=== PATIENT | female | born 1995 | race American Indian/Alaskan Native ===

== ENCOUNTER 2019-01-17 20:22 | Observation (INO) | payer SELFPAY ==
--- NOTE | 2019-01-17 20:28 | Emergency Department Report ---
Blank Doc - Documentation Documentation: This is a 23-year-old female that presents with hands and arms locking up. Robert davies denies any chest pain or SOB. This initial assessment/diagnostic orders/clinical plan/treatment(s) is/are subject to change based on patient's health status, clinical progression and re-assessment by fellow clinical providers in the ED. Further treatment and workup at subsequent clinical providers discretion. Patient/guardians urged not to elope from the ED as their condition may be serious if not clinically assessed and managed. Initial orders include: 1- Patient sent to MAIN ED for further evaluation and treatment 2- labs 3- EKG 4- UA
[2019-01-17 21:06] LABS: Hematocrit 23.5 % (30.3-42.9); Hemoglobin 6.9 gm/dl (10.1-14.3); Mean Corpuscular HGB Conc 29 % (30-34); Platelet Count 564 K/mm3 (140-440); Red Blood Count 3.95 M/mm3 (3.65-5.03)
[2019-01-17 21:08] LABS: Basophils % (Auto) 0.6 % (0.0-1.8); Lymphocytes # (Auto) 3.1 K/mm3 (1.2-5.4); Lymphocytes % (Auto) 47.6 % (13.4-35.0); Mean Corpuscular Volume 59 fl (79-97); Monocytes # (Auto) 0.4 K/mm3 (0.0-0.8); Monocytes % (Auto) 6.2 % (0.0-7.3); Red Cell Distribution Width 22.1 % (13.2-15.2)
[2019-01-17] MEDS ORDERED: NACL 0.9% 1000 ML 1,000 ML IV ONE ×2 (21:19→21:20)
--- NOTE | 2019-01-17 21:24 | Emergency Department Report ---
- General Chief complaint: Neuro Symptoms/Deficit Stated complaint: SHOCK DEHYDRATION Time Seen by Provider: 01/17/19 20:27 Source: patient, family Mode of arrival: Ambulatory Limitations: Physical Limitation - History of Present Illness Initial comments: 23-year-old female with no significant past medical history presents to the hospital after generalized weakness and feeling like her body was locking up while working. 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 She did not have anything to drink or eat all day. Patient states she felt weak all over, hot, and shortness of breath. She tried to sit down to recover and felt like her body was locking up. No reports of syncope. Her mother expresses concerns that patient is constantly eating ice. Patient denies any pain at this time. Patient is currently on her menstrual cycle and uses 4 tampons daily. - Related Data Allergies Allergy/AdvReac Type Severity Reaction Status Date / Time No Known Allergies Allergy Unverified 01/17/19 21:20 ED Review of Systems ROS: Stated complaint: SHOCK DEHYDRATION Other details as noted in HPI Comment: All other systems reviewed and negative ED Past Medical Hx - Past Medical History Previous Medical History?: No - Surgical History Past Surgical History?: No - Social History Smoking Status: Never Smoker Substance Use Type: Marijuana ED Physical Exam - General Limitations: Physical Limitation - Other Other exam information: General: No limitations, patient is alert in no acute distress Head exam: Atraumatic, normocephalic Eyes exam: Normal appearance, pupils equal reactive to light, extraocular movements intact ENT: Dry mucous membranes Neck exam: Normal inspection, full range of motion, no meningismus nontender Respiratory exam: Clear to auscultation bilateral, no wheezes, rales, crackles Cardiovascular: Normal rate and rhythm, normal heart sounds Abdomen: Soft, nondistended, and nontender, with normal bowel sounds, no rebound, or guarding Extremity: Full range of motion normal inspection no deformity Back: Normal Inspection, full range of motion, no tenderness Neurologic: Alert, oriented x3, cranial nerves intact, no motor or sensory deficit Psychiatric: normal affect, normal mood Skin: Warm, dry, intact ED Course Vital Signs 01/17/19 01/17/19 01/17/19 20:31 20:41 21:01 Temperature 97.4 F L Pulse Rate 95 H 86 74 Respiratory 22 14 Rate Blood Pressure 113/86 100/68 O2 Sat by Pulse 99 Oximetry 01/17/19 22:01 Temperature Pulse Rate 87 Respiratory 15 Rate Blood Pressure 112/64 O2 Sat by Pulse 100 Oximetry ED Medical Decision Making - Lab Data Result diagrams: 01/17/19 20:47 01/17/19 20:47 Lab Results 01/17/19 01/17/19 01/17/19 Range/Units 20:47 20:47 20:47 WBC 6.5 (4.5-11.0) K/mm3 RBC 3.95 (3.65-5.03) M/mm3 Hgb 6.9 L (10.1-14.3) gm/dl Hct 23.5 L (30.3-42.9) % MCV 59 L (79-97) fl MCH 17 L (28-32) pg MCHC 29 L (30-34) % RDW 22.1 H (13.2-15.2) % Plt Count 564 H (140-440) K/mm3 Lymph % (Auto) 47.6 H (13.4-35.0) % Hoke % (Auto) 6.2 (0.0-7.3) % Eos % (Auto) 0.0 (0.0-4.3) % Baso % (Auto) 0.6 (0.0-1.8) % Lymph # 3.1 (1.2-5.4) K/mm3 Hoke # 0.4 (0.0-0.8) K/mm3 Eos # 0.0 (0.0-0.4) K/mm3 Baso # 0.0 (0.0-0.1) K/mm3 Seg Neutrophils % 45.6 (40.0-70.0) % Seg Neutrophils # 3.0 (1.8-7.7) K/mm3 Sodium 136 L (137-145) mmol/L Potassium 3.0 L (3.6-5.0) mmol/L Chloride 97.8 L (98-107) mmol/L Carbon Dioxide 17 L (22-30) mmol/L Anion Gap 24 mmol/L BUN 11 (7-17) mg/dL Creatinine 0.6 L (0.7-1.2) mg/dL Estimated GFR > 60 ml/min BUN/Creatinine Ratio 18 % Glucose 96 (65-100) mg/dL Calcium 9.5 (8.4-10.2) mg/dL Magnesium (1.7-2.3) mg/dL Iron (37-170) ug/dL TIBC (250-450) mcg/dL % Saturation % Transferrin (192-382) mg/dl Total Bilirubin 0.70 (0.1-1.2) mg/dL AST 14 (5-40) units/L ALT 11 (7-56) units/L Alkaline Phosphatase 75 (35-129) units/L Total Protein 8.4 H (6.3-8.2) g/dL Albumin 4.5 (3.9-5) g/dL Albumin/Globulin Ratio 1.2 % Lipase 40 (13-60) units/L HCG, Qual Negative (Negative) Urine Bilirubin (Negative) Urine RBC (Auto) (0.0-6.0) /HPF U Epithel Cells (Auto) (0-13.0) /HPF Salicylates (2.8-20.0) mg/dL Acetaminophen (10.0-30.0) ug/mL Plasma/Serum Alcohol (0-0.07) % 01/17/19 01/17/19 01/17/19 Range/Units 20:47 20:47 20:47 WBC (4.5-11.0) K/mm3 RBC (3.65-5.03) M/mm3 Hgb (10.1-14.3) gm/dl Hct (30.3-42.9) % MCV (79-97) fl MCH (28-32) pg MCHC (30-34) % RDW (13.2-15.2) % Plt Count (140-440) K/mm3 Lymph % (Auto) (13.4-35.0) % Hoke % (Auto) (0.0-7.3) % Eos % (Auto) (0.0-4.3) % Baso % (Auto) (0.0-1.8) % Lymph # (1.2-5.4) K/mm3 Hoke # (0.0-0.8) K/mm3 Eos # (0.0-0.4) K/mm3 Baso # (0.0-0.1) K/mm3 Seg Neutrophils % (40.0-70.0) % Seg Neutrophils # (1.8-7.7) K/mm3 Sodium (137-145) mmol/L Potassium (3.6-5.0) mmol/L Chloride (98-107) mmol/L Carbon Dioxide (22-30) mmol/L Anion Gap mmol/L BUN (7-17) mg/dL Creatinine (0.7-1.2) mg/dL Estimated GFR ml/min BUN/Creatinine Ratio % Glucose (65-100) mg/dL Calcium (8.4-10.2) mg/dL Magnesium (1.7-2.3) mg/dL Iron (37-170) ug/dL TIBC (250-450) mcg/dL % Saturation % Transferrin (192-382) mg/dl Total Bilirubin (0.1-1.2) mg/dL AST (5-40) units/L ALT (7-56) units/L Alkaline Phosphatase (35-129) units/L Total Protein (6.3-8.2) g/dL Albumin (3.9-5) g/dL Albumin/Globulin Ratio % Lipase (13-60) units/L HCG, Qual (Negative) Urine Bilirubin (Negative) Urine RBC (Auto) (0.0-6.0) /HPF U Epithel Cells (Auto) (0-13.0) /HPF Salicylates < 0.3 L (2.8-20.0) mg/dL Acetaminophen < 5.0 L (10.0-30.0) ug/mL Plasma/Serum Alcohol < 0.01 (0-0.07) % 01/17/19 01/17/19 01/17/19 Range/Units 21:00 21:07 21:29 WBC (4.5-11.0) K/mm3 RBC (3.65-5.03) M/mm3 Hgb (10.1-14.3) gm/dl Hct (30.3-42.9) % MCV (79-97) fl MCH (28-32) pg MCHC (30-34) % RDW (13.2-15.2) % Plt Count (140-440) K/mm3 Lymph % (Auto) (13.4-35.0) % Hoke % (Auto) (0.0-7.3) % Eos % (Auto) (0.0-4.3) % Baso % (Auto) (0.0-1.8) % Lymph # (1.2-5.4) K/mm3 Hoke # (0.0-0.8) K/mm3 Eos # (0.0-0.4) K/mm3 Baso # (0.0-0.1) K/mm3 Seg Neutrophils % (40.0-70.0) % Seg Neutrophils # (1.8-7.7) K/mm3 Sodium (137-145) mmol/L Potassium (3.6-5.0) mmol/L Chloride (98-107) mmol/L Carbon Dioxide (22-30) mmol/L Anion Gap mmol/L BUN (7-17) mg/dL Creatinine (0.7-1.2) mg/dL Estimated GFR ml/min BUN/Creatinine Ratio % Glucose (65-100) mg/dL Calcium (8.4-10.2) mg/dL Magnesium 1.90 (1.7-2.3) mg/dL Iron 11 L (37-170) ug/dL TIBC 479 H (250-450) mcg/dL % Saturation 2.30 % Transferrin 409 H (192-382) mg/dl Total Bilirubin (0.1-1.2) mg/dL AST (5-40) units/L ALT (7-56) units/L Alkaline Phosphatase (35-129) units/L Total Protein (6.3-8.2) g/dL Albumin (3.9-5) g/dL Albumin/Globulin Ratio % Lipase (13-60) units/L HCG, Qual (Negative) Urine Bilirubin Neg (Negative) Urine RBC (Auto) 18.0 (0.0-6.0) /HPF U Epithel Cells (Auto) 5.0 (0-13.0) /HPF Salicylates (2.8-20.0) mg/dL Acetaminophen (10.0-30.0) ug/mL Plasma/Serum Alcohol (0-0.07) % ua reviewed - EKG Data -: EKG Interpreted by Mi EKG shows normal: sinus rhythm, axis (qrs 73), QRS complexes (qrsd 88), ST-T waves (no stemi/t inv) Rate: tachycardia (103) - EKG Data When compared to previous EKG there are: previous EKG unavailable - Medical Decision Making plan to admit for blood transfusion and IVF po KCL for mildy hypokalmia low bicarb with anion gap noted ? dehydration Hospitalist informed - Differential Diagnosis dehydration, anemia, electrolyte abnormalities Critical Care Time: No Critical care attestation.: If time is entered above; I have spent that time in minutes in the direct care of this critically ill patient, excluding procedure time. ED Disposition Clinical Impression: Iron deficiency anemia, Dehydration, Generalized weakness, Hypokalemia Disposition: OP ADMIT IP TO THIS HOSP Is pt being admited?: Yes Condition: Stable Time of Disposition: 22:14 (Dr Mendoza/hosp)
[2019-01-17 21:29] LABS: Alanine Aminotransferase 11 units/L (7-56); Albumin 4.5 g/dL (3.9-5); BUN/Creatinine Ratio 18; Blood Urea Nitrogen 11 mg/dL (7-17); Calcium 9.5 mg/dL (8.4-10.2); Hemolysis Index 2
[2019-01-17 21:36] LABS: % Iron Saturation 2.3 %
[2019-01-17] MEDS ORDERED: NACL 0.9% 500 ML 500 ML IV ONE (22:17)
[2019-01-17 22:18] LABS: Bilirubin,Urine NEG (Negative); Blood,Urine LG (Negative); Color,Urine Yellow (Yellow); Mucus,Urine FEW /HPF; Protein,Urine <15 mg/dL mg/dL (Negative); Urobilinogen,Urine < 2.0 mg/dL (<2.0)
[2019-01-17] MEDS ORDERED: K-DUR PO ONE (22:18)
[2019-01-17 22:25] LABS: Amphetamine Screen,Urine PRESUMPTIVE NEGATIVE; Benzodiazepines Screen,Urine PRESUMPTIVE NEGATIVE; Cannabinoid Screen,Urine PRESUMPTIVE NEGATIVE; Cocaine Screen,Urine PRESUMPTIVE NEGATIVE; Methadone Screen,Urine PRESUMPTIVE NEGATIVE; Opiate Screen,Urine PRESUMPTIVE NEGATIVE
[2019-01-17] MEDS ORDERED: TYLENOL PO PRN (23:00)
[2019-01-17] MEDS ORDERED: ZOFRAN IV PRN (23:00)
[2019-01-17] MEDS ORDERED: SODIUM CHLORIDE FLUSH SYRINGE 10 ML IV PRN (23:00)
[2019-01-17] MEDS ORDERED: AMBIEN PO PRN (23:00)
--- NOTE | 2019-01-17 23:15 | History and Physical Report ---
History of Present Illness Date of examination: 01/17/19 Chief complaint: Generalized weakness History of present illness: Patient is a 23-year-old -Malawian female with no known past medical history who presented to the ED on account of generalized weakness. 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 She also admitted to palpitation. She denies chest pain, fever, chills, headaches, nausea, vomiting, syncope or loss of consciousness. No abdominal pain, diarrhea, constipation, dysuria or frequency. Patient reports that her menstrual period is irregular, sometimes heavy and can last for about 2 weeks. Past History Past Medical History: No medical history Past Surgical History: No surgical history Social history: other (patient admits to occasional marijuana and alcohol use. She denies tobacco use) Family history: hypertension (grandmother), other (no known family history of diabetes, heart disease or bleeding disorder) Medications and Allergies Allergies Allergy/AdvReac Type Severity Reaction Status Date / Time No Known Allergies Allergy Unverified 01/17/19 21:20 Active Meds: Active Medications Acetaminophen (Tylenol) 650 mg PO Q4H PRN PRN Reason: Pain MILD(1-3)/Fever >100.5/GRAHAM Potassium Chloride/Sodium Chloride (Ns/Kcl 20meq) 20 meq in 1,000 mls @ 100 mls/hr IV DIRECT CRISTOBAL Potassium Chloride (Kcl 10meq/100ml) 10 meq in 100 mls @ 100 mls/hr IV Q1H CRISTOBAL Stop: 01/18/19 01:44 Ondansetron HCl (Zofran) 4 mg IV Q8H PRN PRN Reason: Nausea And Vomiting Sodium Chloride (Sodium Chloride Flush Syringe 10 Ml) 10 ml IV BID CRISTOBAL Sodium Chloride (Sodium Chloride Flush Syringe 10 Ml) 10 ml IV PRN PRN PRN Reason: LINE FLUSH Zolpidem Tartrate (Ambien) 5 mg PO QHS PRN PRN Reason: Insomnia Review of Systems All systems: negative (except as documented in the HPI, 14 point system reviewed were negative) Exam - Constitutional Vitals: Temp Pulse Resp BP Pulse Ox 97.4 F L 87 15 112/64 100 01/17/19 20:31 01/17/19 22:01 01/17/19 22:01 01/17/19 22:01 01/17/19 22:01 General appearance: Present: no acute distress - EENT Eyes: Present: PERRL, EOM intact (pale conjunctiva) ENT: hearing intact, clear oral mucosa - Neck Neck: Present: supple, normal ROM - Respiratory Respiratory effort: normal Respiratory: bilateral: CTA - Cardiovascular Rhythm: regular Heart Sounds: Present: S1 & S2 - Extremities Extremities: pulses symmetrical, No edema - Abdominal General gastrointestinal: Present: soft, non-tender, non-distended, normal bowel sounds Female genitourinary: Present: deferred - Integumentary Integumentary: Present: clear, warm, dry, pale - Musculoskeletal Musculoskeletal: strength equal bilaterally - Psychiatric Psychiatric: appropriate mood/affect, intact judgment & insight - Neurologic Neurologic: CNII-XII intact Results - Labs CBC & Chem 7: 01/17/19 20:47 01/17/19 20:47 Labs: Laboratory Last Values WBC 6.5 K/mm3 (4.5-11.0) 01/17/19 20:47 RBC 3.95 M/mm3 (3.65-5.03) 01/17/19 20:47 Hgb 6.9 gm/dl (10.1-14.3) L 01/17/19 20:47 Hct 23.5 % (30.3-42.9) L 01/17/19 20:47 MCV 59 fl (79-97) L 01/17/19 20:47 MCH 17 pg (28-32) L 01/17/19 20:47 MCHC 29 % (30-34) L 01/17/19 20:47 RDW 22.1 % (13.2-15.2) H 01/17/19 20:47 Plt Count 564 K/mm3 (140-440) H 01/17/19 20:47 Lymph % (Auto) 47.6 % (13.4-35.0) H 01/17/19 20:47 Schley % (Auto) 6.2 % (0.0-7.3) 01/17/19 20:47 Eos % (Auto) 0.0 % (0.0-4.3) 01/17/19 20:47 Baso % (Auto) 0.6 % (0.0-1.8) 01/17/19 20:47 Lymph # 3.1 K/mm3 (1.2-5.4) 01/17/19 20:47 Schley # 0.4 K/mm3 (0.0-0.8) 01/17/19 20:47 Eos # 0.0 K/mm3 (0.0-0.4) 01/17/19 20:47 Baso # 0.0 K/mm3 (0.0-0.1) 01/17/19 20:47 Seg Neutrophils % 45.6 % (40.0-70.0) 01/17/19 20:47 Seg Neutrophils # 3.0 K/mm3 (1.8-7.7) 01/17/19 20:47 Sodium 136 mmol/L (137-145) L 01/17/19 20:47 Potassium 3.0 mmol/L (3.6-5.0) L 01/17/19 20:47 Chloride 97.8 mmol/L (98-107) L 01/17/19 20:47 Carbon Dioxide 17 mmol/L (22-30) L 01/17/19 20:47 24 mmol/L 01/17/19 20:47 BUN 11 mg/dL (7-17) 01/17/19 20:47 0.6 mg/dL (0.7-1.2) L 01/17/19 20:47 Estimated GFR > 60 ml/min 01/17/19 20:47 18 % 01/17/19 20:47 Glucose 96 mg/dL (65-100) 01/17/19 20:47 Calcium 9.5 mg/dL (8.4-10.2) 01/17/19 20:47 Magnesium 1.90 mg/dL (1.7-2.3) 01/17/19 21:07 Iron 11 ug/dL (37-170) L 01/17/19 21:00 TIBC 479 mcg/dL (250-450) H 01/17/19 21:00 % Saturation 2.30 % 01/17/19 21:00 409 mg/dl (192-382) H 01/17/19 21:00 0.70 mg/dL (0.1-1.2) 01/17/19 20:47 AST 14 units/L (5-40) 01/17/19 20:47 ALT 11 units/L (7-56) 01/17/19 20:47 75 units/L (35-129) 01/17/19 20:47 8.4 g/dL (6.3-8.2) H 01/17/19 20:47 4.5 g/dL (3.9-5) 01/17/19 20:47 1.2 % 01/17/19 20:47 40 units/L (13-60) 01/17/19 20:47 HCG, Qual Negative (Negative) 01/17/19 20:47 Yellow (Yellow) 01/17/19 21:29 Clear (Clear) 01/17/19 21:29 7.0 (5.0-7.0) 01/17/19 21:29 Ur Specific [place] 1.013 (1.003-1.030) 01/17/19 21:29 <15 mg/dl mg/dL (Negative) 01/17/19 21:29 Neg mg/dL (Negative) 01/17/19 21:29 20 mg/dL (Negative) 01/17/19 21:29 Lg (Negative) 01/17/19 21:29 Neg (Negative) 01/17/19 21:29 Neg (Negative) 01/17/19 21:29 < 2.0 mg/dL (<2.0) 01/17/19 21:29 Ur Leukocyte Esterase Sm (Negative) 01/17/19 21:29 1.0 /HPF (0.0-6.0) 01/17/19 21:29 18.0 /HPF (0.0-6.0) 01/17/19 21:29 U Epithel Cells (Auto) 5.0 /HPF (0-13.0) 01/17/19 21:29 Few /HPF 01/17/19 21:29 Salicylates < 0.3 mg/dL (2.8-20.0) L 01/17/19 20:47 Presumptive negative 01/17/19 21:39 Presumptive negative 01/17/19 21:39 Acetaminophen < 5.0 ug/mL (10.0-30.0) L 01/17/19 20:47 Ur Barbiturates Screen Presumptive negative 01/17/19 21:39 Ur Phencyclidine Scrn Presumptive negative 01/17/19 21:39 Ur Amphetamines Screen Presumptive negative 01/17/19 21:39 U Benzodiazepines Scrn Presumptive negative 01/17/19 21:39 Presumptive negative 01/17/19 21:39 U Marijuana (THC) Screen Presumptive negative 01/17/19 21:39 Disclamer 01/17/19 21:39 Plasma/Serum Alcohol < 0.01 % (0-0.07) 01/17/19 20:47 Assessment and Plan Assessment and plan: Acute on chronic iron deficiency and blood loss anemia -Patient is scheduled to receive 1 unit of PRBC -We'll also add oral iron tablet -We'll monitor posttransfusion H&H SIRS likely due to noninfectious process -We will monitor clinically Hypokalemia -We will replete and monitor K level Acute high AG metabolic acidosis -Exact cause unknown -We'll hydrate patient and monitor levels. History of menorrhagia -For outpatient gynecology referral on discharge DVT prophylaxis with SCD Disposition: For discharge when medically stable Time spent: 35 minutes
[2019-01-17] MEDS ORDERED: NS/KCL 20MEQ 20 MEQ/1,000 ML BAG IV SCH (23:45)
[2019-01-18] MEDS: KCL 10MEQ/100ML 10 MEQ/100 ML BAG IV SCH ×2 (02:04→02:05)
[2019-01-18 05:50] LABS: Hematocrit 22.6 % (30.3-42.9); Hemoglobin 6.4 gm/dl (10.1-14.3)
[2019-01-18 06:16] LABS: BUN/Creatinine Ratio 14; Blood Urea Nitrogen 7 mg/dL (7-17); Calcium 8.1 mg/dL (8.4-10.2); Hemolysis Index 0
[2019-01-18 08:22] VITALS: BP 125/86
[2019-01-18] MEDS ORDERED: NACL 0.9% 500 ML 500 ML IV ONE (08:30)
[2019-01-18] MEDS ORDERED: FEOSOL PO SCH (10:00)
[2019-01-18] MEDS ORDERED: SODIUM CHLORIDE FLUSH SYRINGE 10 ML IV SCH (10:00)
[2019-01-18 11:19] LABS: Hematocrit 26.8 % (30.3-42.9); Hemoglobin 7.9 gm/dl (10.1-14.3)
--- NOTE | 2019-01-18 11:33 | Discharge Summary ---
Providers - Providers Date of Admission: 01/17/19 23:00 Date of discharge: 01/18/19 Attending physician: TYRELL THOMAS [facility] Condition: Stable Hospital course: Patient is a 23-year-old -[place]iquais female with history of menorrhagia presented to the ED on account of generalized weakness. She noted to have hb of 6.4 - transfused one unit of PRBC, Hb improved to 7.9. 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 Discharge diagnosis and management: Acute on chronic iron deficiency and blood loss anemia - due to menorrhagia -Patient was transfused 1 units of PRBC -also added oral iron tablet -Hb improved posttransfusion to 7.9 SIRS likely due to noninfectious process -no infectious etiology Hypokalemia -repleted Acute high AG metabolic acidosis -due to degydration, given iv hydration History of menorrhagia -outpatient gynecology referral on discharge DVT prophylaxis with SCD Disposition: DC- TO HOME OR SELFCARE Time spent for discharge: 34 minutes Core Measure Documentation - Palliative Care Palliative Care/ Comfort Measures: Not Applicable - Core Measures Any of the following diagnoses?: none Exam - Constitutional Vitals: Temp Pulse Resp BP Pulse Ox 97.7 F 63 16 125/86 100 01/18/19 08:15 01/18/19 08:15 01/18/19 08:15 01/18/19 08:15 01/18/19 07:45 General appearance: Present: no acute distress, well-nourished - EENT Eyes: Present: PERRL ENT: hearing intact, clear oral mucosa - Neck Neck: Present: supple, normal ROM - Respiratory Respiratory effort: normal Respiratory: bilateral: CTA - Cardiovascular Heart Sounds: Present: S1 & S2. Absent: rub, click - Extremities Extremities: pulses symmetrical, No edema Peripheral Pulses: within normal limits - Abdominal General gastrointestinal: Present: soft, non-tender, non-distended, normal bowel sounds - Integumentary Integumentary: Present: clear, warm, dry - Musculoskeletal Musculoskeletal: gait normal, strength equal bilaterally - Psychiatric Psychiatric: appropriate mood/affect, intact judgment & insight - Neurologic Neurologic: CNII-XII intact, moves all extremities Plan Activity: advance as tolerated Weight Bearing Status: Weight Bear as Tolerated Diet: regular Follow up with: [facility] MD BIJAN [Primary Care Provider] - 7 Days JENNIFER AUSTIN MD [Staff Physician] - 7 Days Forms: Work/School Release Form Prescriptions: Ferrous Sulfate [Feosol 325 MG tab] 325 mg PO BID #60 tablet
== END 2019-01-18 14:45 | disposition home or self-care (01) ==
LOC: ED 20:22 → 3A 23:00 → INTOOBSV 23:00
PROVIDERS: ADMIT Internal Medicine; ATTEND Internal Medicine
DX: D50.9 Iron deficiency anemia, unspecified (principal); E87.6 Hypokalemia; E87.2 Acidosis; N92.0 Excessive and frequent menstruation with regular cycle; R42 Dizziness and giddiness
CPT/HCPCS: 36415; 36430; 80048; 80053; 80307; 81001; 83550; 83690; 83735; 84703; 85014; 85018; 85025; 86850; 86900; 86901; 86920; 93005; 93010; 96361; 96365; 96366; 99284; G0378; G0480; J3480; J7030; J7040; P9016; 80320; 96360

== ENCOUNTER 2021-01-28 18:31 | Emergency (ER) | payer SELFPAY ==
[2021-01-28 19:57] VITALS: BP 114/76
[2021-01-28] MEDS ORDERED: HYDROcodone/ACETAMINOPHEN 5-325 MG TAB PO ONE (21:13)
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
[2021-01-28 23:42] LABS: Bacteria,Urine 1+ /HPF (Negative); Bilirubin,Urine NEG (Negative); Blood,Urine NEG (Negative); Color,Urine Yellow (Yellow); Mucus,Urine 3+ /HPF
[2021-01-28 23:43] LABS: HCG Qualitative,Urine Negative (Negative)
[2021-01-28] MEDS ORDERED: CYCLOBENZAPRINE 10 MG TAB PO ONE (23:49)
[2021-01-28] MEDS ORDERED: KETOROLAC 30 MG/1 ML INJ IM ONE (23:49)
== END 2021-01-29 01:00 | disposition home or self-care (01) ==
LOC: ED 18:31
DX: S16.1XXA Strain of muscle, fascia and tendon at neck level, initial encounter (principal); S39.012A Strain of muscle, fascia and tendon of lower back, initial encounter; R51.9 Headache, unspecified; F12.90 Cannabis use, unspecified, uncomplicated; R22.0 Localized swelling, mass and lump, head; Z79.899 Other long term (current) drug therapy; V89.2XXA Person injured in unspecified motor-vehicle accident, traffic, initial encounter; Y93.89 Activity, other specified; Y92.488 Other paved roadways as the place of occurrence of the external cause; Y99.8 Other external cause status
CPT/HCPCS: 70450; 70486; 72125; 72131; 81001; 81025; 96372; 99284; J1885